=== PATIENT | female | born 1935 | race Caucasian/White ===

== ENCOUNTER 2016-05-07 11:04 | Emergency (ER) | payer MEDICARE ==
--- NOTE | ~2016-05-07 | EKG ---
PATIENT: YOUNG GRIFFIN UNIT #: [id number] Ventricular Rate: 71 BPM Atrial Rate: 71 BPM P-R Interval: 140 ms QRS Duration: 88 ms Q-T Interval: 416 ms QTC Calculation(Bezet): 452 ms P [place]: -12 degrees Calculated T [place]: 59 degrees Diagnosis Line: Normal sinus rhythm Diagnosis Line: Voltage criteria for left ventricular hypertrophy Diagnosis Line: T wave abnormality, consider lateral ischemia Diagnosis Line: Abnormal ECG Diagnosis Line: No previous ECGs available Diagnosis Line: Confirmed by HALEY HELMS MD ([id number]) on Diagnosis Line: 05/09/2016 12:03:28 AM INTERPRETING MD: SCOOTER SALGADO
--- NOTE | ~2016-05-07 | CR72 ---
[facility] A Service of [facility] RADIOLOGY TEXT RESULTS PATIENT: YOUNG GRIFFIN LOCATION: [facility] : 31 UNIT #: [id number] AGE: [address]: Magdiel Wellington MD SEX: F ORDER DR: [id number] [facility] [address] [place], [place] [address] [id number] MR#: [id number] Acc #: [id number] NAME: YOUNG GRIFFIN : 1935 SEX: F STUDY DATE/TIME: 05/07/2016 10:14 UNIT: [facility] ROOM: STUDY DESCRIPTION: CR Chest Single View Portable Attending Physician: Magdiel Wellington M.D. Ordering Physician: Magdiel Wellington M.D. Primary Care Physician: No Primary Care Physician MEDICAL IMAGING REPORT This report is preliminary unless electronic signature is present EXAM Portable chest INDICATIONS 81-year-old female with weakness, lethargy for 2 days, diabetes, COPD and asthma. No comparisons are available. FINDINGS There is linear densities in the right base suggestive of scarring. Patient is rotated in the left base is not adequately evaluated. There appears to be some atelectasis or scarring in the left base as well. No obvious acute infiltrate. Heart size within normal limits. IMPRESSION The patient is rotated. There are linear areas of atelectasis or scarring in the right base and probably in the left base as well although the left base is obscured by patient rotation. Dictated by... Simone Grace M.D. THIS IS AN ELECTRONICALLY VERIFIED REPORT Simone Grace M.D. at 05/08/2016 10:43 AM PREMA/aryan TD: 05/08/2016 04:40 JOB #: [id number] MEDICAL IMAGING REPORT COPY
--- NOTE | ~2016-05-07 | CT71 ---
[facility] A Service [facility] RADIOLOGY TEXT RESULTS PATIENT: YOUNG GRIFFIN LOCATION: [facility] : 31 UNIT #: [id number] AGE: [address]: Magdiel Wellington MD SEX: F ORDER DR: [id number] [facility] [place], [place] [address] [id number] E MR#: [id number] Acc #: [id number] NAME: YOUNG GRIFFIN : 1935 SEX: F STUDY DATE/TIME: 05/07/2016 10:26 UNIT: [facility] ROOM: STUDY DESCRIPTION: CT Head Wo Contrast Attending Physician: Magdiel Wellington M.D. Ordering Physician: Magdiel Wellington M.D. Primary Care Physician: No Primary Care Physician MEDICAL IMAGING REPORT This report is preliminary unless electronic signature is present EXAM CT scan of the head without contrast HISTORY Lethargy weakness for 2 days. There is no comparison. TECHNIQUE This CT exam was performed with one or more of the following radiation dose reduction techniques: automatic control, adjustment of mA and/or kV according to patient size, and iterative reconstruction. FINDINGS Unenhanced images were obtained through the brain. There appears to be a subacute infarct involving most left cerebellar hemisphere. Fourth ventricle is normal. There is mild generalized atrophy. There is minimal small vessel ischemic change around the ventricles and the cerebral hemispheres. 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 IMPRESSION 1. There is a large area of decreased density involving most of the left cerebellum consistent with a subacute infarct. There is no hemorrhage or compression of the fourth ventricle. 2. Generalized atrophy. Dictated by... Ruddy Moreno M.D. [facility] A Service [facility] RADIOLOGY TEXT RESULTS PATIENT: YOUNG GRIFFIN LOCATION: [facility] : 31 UNIT #: [id number] AGE: [address]: Magdiel Wellington MD SEX: F ORDER DR: THIS IS AN ELECTRONICALLY VERIFIED REPORT Ruddy Moreno M.D. at 05/08/2016 3:06 PM ANIVAL/aryan TD: 05/08/2016 05:22 JOB #: [id number] MEDICAL IMAGING REPORT COPY
[2016-05-07 10:30] LABS: BASOPHIL# 0.1 X10e3 (0-0.3); BASOPHIL% 0.8 % (0-2.5); EOSINOPHIL# 0.1 X10e3 (0-0.7); EOSINOPHIL% 1.4 % (0.0-7.0); HEMATOCRIT 43.8 % (35.0-45.0); HEMOGLOBIN 14.5 gm/dL (12.0-16.0); LYMPHOCYTE# 1.3 X10e3 (1.0-3.5); LYMPHOCYTE% 14.7 % (17.0-45.0); MEAN CELL VOLUME 88.6 FL (83-96); MEAN CORPUSCULAR HEMOGLOBIN 29.4 PG (28-34); MEAN CORPUSCULAR HGB CONC 33.2 g/dL (30-36); MEAN PLATELET VOLUME 7.2 FL (6.5-11.5); MONOCYTE# 0.8 X10e3 (0-1.0); MONOCYTE% 8.5 % (3.0-12.0); NEUTROPHIL# 6.8 X10e3 (1.5-7.1); NEUTROPHIL% 74.6 % (40-75); PLATELET COUNT 273 X10e3 (140-420); RED BLOOD COUNT 4.94 X10e (3.90-5.30); RED CELL DISTRIBUTION WIDTH 13.4 % (11.0-15.5); WHITE BLOOD COUNT 9.1 X10e3 (4.0-10.5)
[2016-05-07 10:34] LABS: POC - CKMB <1.0 ng/mL (0.0-7.9); POC - TROPONIN <0.05 ng/mL (<=0.05)
[2016-05-07 10:41] LABS: DIFF IND NO
[2016-05-07 10:58] LABS: ACETAMINOPHEN <10 ug/mL; ALBUMIN SERUM 3.7 g/dL (3.5-5.0); ALKALINE PHOSPHATASE 72 U/L (32-92); ALT (SGPT) 47 U/L (10-40); AST (SGOT) 50 U/L (10-42); BILIRUBIN, DIRECT 0.1 mg/dL (0.0-0.2); BILIRUBIN,INDIRECT 0.7 mg/dL (0.0-0.9); BILIRUBIN,TOTAL 0.8 mg/dL (0.2-2.0); BLOOD UREA NITROGEN 26 mg/dL (9-23); CALCIUM SERUM 8.5 mg/dL (8.4-10.2); CARBON DIOXIDE 27 mmol/L (22-31); CHLORIDE 98 mmol/L (100-111); GLOM FILT RATE Estimated 56.3 mL/min (>60); GLUCOSE FASTING 140 mg/dL (70-110); POTASSIUM 3.6 mmol/L (3.5-5.1); PROTEIN TOTAL SERUM 7.2 g/dL (6.0-8.3); SALICYLATE <4.0 mg/dL; SODIUM 133 mmol/L (135-145)
[~2016-05-07 11:04] MED LIST: AMLODIPINE BESYL5 MG PO; DETROL1 MG PO; DONEPEZIL HCL10 MG PO; FERREX 150 FOR1 EACH PO; HUMALOG100 U/ML SUBQ; LEVEMIR FL100 UNIT/1 SUBQ; NAMENDA10 MG PO; PHENERGAN12.5 MG PO; ROBAFEN DM CGH118 ML PO; SENNA PLUS TABL1 TAB PO
[2016-05-07 11:45] LABS: URINE SOURCE CATH
[2016-05-07 11:52] LABS: URINE APPEARANCE CLOUDY; URINE BILIRUBIN NEG (NEG); URINE BLOOD NEG (NEG); URINE COLOR YELLOW; URINE GLUCOSE NEG (NEG); URINE KETONE NEG (NEG); URINE LEUKOCYTE ESTERASE TRACE (NEG); URINE NITRATE NEG (NEG); URINE PROTEIN NEG (NEG); URINE SPECIFIC GRAVITY 1.024 (1.003-1.035)
[2016-05-07 11:53] LABS: CULTURE INDICATED? YES; URBCS1 AUWI 0-2 /[HPF] (0-2); URINE BACTERIA AUWI 4+ (NEGATIVE); URINE SQUAMOUS EPITHELIAL CELL OCC /[HPF]; UWBCS1 AUWI 25-50 (0-5)
== END 2016-05-07 15:00 | disposition home or self-care (01) ==
LOC: CED 11:04
PROVIDERS: Emergency Medicine
DX: R41.82 Altered mental status, unspecified (principal); N39.0 Urinary tract infection, site not specified; J44.9 Chronic obstructive pulmonary disease, unspecified; N18.9 Chronic kidney disease, unspecified; Z88.5 Allergy status to narcotic agent; Z79.899 Other long term (current) drug therapy
CPT/HCPCS: 36415; 51701; 70450; 71010; 80048; 80076; 81003; 82140; 82553; 82947; 84484; 85025; 87086; 93005; 99285; G0480; J0696